=== PATIENT | male | born 1990 | race Caucasian/White ===

== ENCOUNTER 2019-07-25 17:24 | Emergency (ER) | payer SELFPAY ==
--- NOTE | 2019-07-25 19:36 | EDPHYS ---
Physician Documentation [facility] Name: Jermaine Ansari Age: 28 yrs Sex: Male : 1990 Arrival Date: 07/25/2019 Time: 17:25 Bed 12 Private MD: ED Physician Cal Mccormick HPI: 07/25 19:34 This 28 yrs old Male presents to ER via Ambulatory with complaints of Insect pm1 Bite. 19:34 The patient presents with an abscess of the right lower quadrant. Description: raised, pm1 scabbed over. Drainage present yesterday. Onset: The symptoms/episode began/occurred 3 day(s) ago. Possible cause(s): unknown. Associated signs and symptoms: Pertinent negatives: fever. Modifying factors: the symptoms are alleviated by squeezing the lesion and expressing the contents, the symptoms are aggravated by nothing. Severity of symptoms: in the emergency department the symptoms have improved. The patient has not experienced similar symptoms in the past. Historical: - Allergies: 18:01 No Known Allergies; la1 - PMHx: 18:01 ABNORMAL INTESTINE HAD TO BE REMOVED; Hernia; la1 - Immunization history:: Adult Immunizations up to date. - Social history:: Smoking status: Patient uses tobacco products, smokes one pack cigarettes per day. - Ebola Screening: : No symptoms or risks identified at this time. ROS: 19:34 Constitutional: Negative for fever, chills, and weight loss, Cardiovascular: Negative pm1 for chest pain, palpitations, and edema, Respiratory: Negative for shortness of breath, cough, wheezing, and pleuritic chest pain, Abdomen/GI: Negative for abdominal pain, nausea, vomiting, diarrhea, and constipation, Back: Negative for injury and pain, MS/Extremity: Negative for injury and deformity. 19:34 Skin: Positive for abscess, of the right lower quadrant, Negative for cellulitis. 19:34 All other systems are negative. Exam: 19:34 Constitutional: This is a well developed, well nourished patient who is awake, alert, pm1 and in no acute distress. Chest/axilla: Normal chest wall appearance and motion. Nontender with no deformity. No lesions are appreciated. Cardiovascular: Regular rate and rhythm with a normal S1 and S2. No gallops, murmurs, or rubs. Normal PMI, no JVD. No pulse deficits. Respiratory: Lungs have equal breath sounds bilaterally, clear to auscultation and percussion. No rales, rhonchi or wheezes noted. No increased work of breathing, no retractions or nasal flaring. Abdomen/GI: Soft, non-tender, with normal bowel sounds. No distension or tympany. No guarding or rebound. No evidence of tenderness throughout. Back: No spinal tenderness. No costovertebral tenderness. Full range of motion. 19:34 MS/ Extremity: Pulses equal, no cyanosis. Neurovascular intact. Full, normal range of motion. 19:34 Skin: Appearance: normal except for affected area, abscess, that is small, approximately 1 cm(s), of the right lower quadrant, No surrounding cellulitis. No fluctuance or draingage. 19:34 Neuro: Orientation: is normal, Motor: moves all fours, Gait: is steady, at a normal pace, without difficulty. Vital Signs: 18:01 BP 134 / 100; Pulse 89; Resp 16; Temp 98.1; Pulse Ox 100% on R/A; Weight 90.72 kg; la1 Height 5 ft. 11 in. (180.34 cm); 18:01 Body Mass Index 27.89 (90.72 kg, 180.34 cm) la1 MDM: 19:29 Patient medically screened. pm1 19:34 Data reviewed: vital signs. Data interpreted: Pulse oximetry: on room air is 100 %. pm1 Interpretation: normal. Counseling: I had a detailed discussion with the patient and/or guardian regarding: the historical points, exam findings, and any diagnostic results supporting the discharge/admit diagnosis, the need for outpatient follow up, to return to the emergency department if symptoms worsen or persist or if there are any questions or concerns that arise at home. 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 Exp: rv 02/03/2021. Lot #: [id number]. } Route: IM; Site: right deltoid; 19:42 Follow up: Response: Medication administered at discharge. rv Disposition: 07/26 03:38 Co-signature as Attending Physician, Cal Mccormick MD I agree with the assessment and 4 plan of care. Disposition: 07/25/19 19:35 Discharged to Home. Impression: Cutaneous abscess of abdominal wall. - Condition is Stable. - Discharge Instructions: Skin Abscess. - Prescriptions for Bactroban 2 % Topical Ointment - Apply to affected area 1 application by TOPICAL route every 12 hours; 30 gram. Bactrim DS 800- 160 mg Oral Tablet - take 1 tablet by ORAL route every 12 hours for 10 days; 20 tablet. - Medication Reconciliation Form, Thank You Letter, Antibiotic Education, Prescription Opioid Use form. - Follow up: Emergency Department; When: As needed; Reason: Worsening of condition. Follow up: Private Physician; When: 2 - 3 days; Reason: Recheck today's complaints, Continuance of care, Re-evaluation by your physician. - Problem is new. - Symptoms have improved. Signatures: Gokul Potter, RN RN la1 Francisco Hdz, [employer] BEEF TAGGER pm1 Cal Mccormick MD MD tw4 Bennie Egan RN RN rv Corrections: (The following items were deleted from the chart) 07/25 19:42 19:35 07/25/2019 19:35 Discharged to Home. Impression: Cutaneous abscess of abdominal rv wall. Condition is Stable. Forms are Medication Reconciliation Form, Thank You Letter, Antibiotic Education, Prescription Opioid Use. Follow up: Emergency Department; When: As needed; Reason: Worsening of condition. Follow up: Private Physician; When: 2 - 3 days; Reason: Recheck today's complaints, Continuance of care, Re-evaluation by your physician. Problem is new. Symptoms have improved. pm1
--- NOTE | 2019-07-25 19:36 | ER ---
Nurse's Notes [facility] Name: Jermaine Ansari Age: 28 yrs Sex: Male : 1990 Arrival Date: 07/25/2019 Time: 17:25 Bed 12 Private MD: Diagnosis: Cutaneous abscess of abdominal wall Presentation: 07/25 18:00 Presenting complaint: Patient states: I have had a bite or something on my belly since la1 about Thursday and its just hurting and not getting better. Transition of care: patient was not received from another setting of care. Onset of symptoms was July 25, 2019. Risk Assessment: Do you want to hurt yourself or someone else? Patient reports no desire to harm self or others. Initial Sepsis Screen: Does the patient meet any 2 criteria? No. Patient's initial sepsis screen is negative. Does the patient have a suspected source of infection? No. Patient's initial sepsis screen is negative. Care prior to arrival: None. 18:00 Method Of Arrival: Ambulatory la1 18:00 Acuity: CHARANJIT 5 la1 Triage Assessment: 19:41 Bite description: bite sustained to abdomen by an unknown animal, animal information: rv vaccination(s) is not applicable. General: Appears in no apparent distress. comfortable. Historical: - Allergies: 18:01 No Known Allergies; la1 - PMHx: 18:01 ABNORMAL INTESTINE HAD TO BE REMOVED; Hernia; la1 - Immunization history:: Adult Immunizations up to date. - Social history:: Smoking status: Patient uses tobacco products, smokes one pack cigarettes per day. - Ebola Screening: : No symptoms or risks identified at this time. Screenin:15 Abuse screen: Denies threats or abuse. Nutritional screening: No deficits noted. Tuberculosis screening: No symptoms or risk factors identified. Fall Risk None identified. Assessment: 19:15 General: Appears comfortable, obese, Behavior is calm, cooperative, appropriate for age. Pain: Complains of pain in right lower quadrant Quality of pain is described as aching, Pain began 1 week ago Is continuous, Aggravated by palpitation. Neuro: Level of Consciousness is awake, alert, obeys commands, Oriented to person, place, time, situation, Appropriate for age. Cardiovascular: No deficits noted. Respiratory: No deficits noted. GI: No deficits noted. : No deficits noted. EENT: No deficits noted. Derm: Skin is intact, Skin is dry, Skin is pink, Skin temperature is warm Wound noted right lower quadrant Wound is 1/2 cm scab with minimal redness around it. Musculoskeletal: Circulation, motion, and sensation intact. Capillary refill < 3 seconds, Range of motion: intact in all extremities. 19:25 Reassessment: No changes from previously documented assessment. Patient and/or family fc updated on plan of care and expected duration. Pain level reassessed. Patient is alert, oriented x 3, equal unlabored respirations, skin warm/dry/pink. Francisco MACHINE TOOL TECHNOLOGY INSTRUCTOR in to see and examine pt. Vital Signs: 18:01 BP 134 / 100; Pulse 89; Resp 16; Temp 98.1; Pulse Ox 100% on R/A; Weight 90.72 kg; la1 Height 5 ft. 11 in. (180.34 cm); 18:01 Body Mass Index 27.89 (90.72 kg, 180.34 cm) la1 ED Course: 17:25 Patient arrived in ED. as 18:00 Triage completed. la1 18:01 Arm band placed on right wrist. la1 19:15 Patient has correct armband on for positive identification. Call light in reach. fc 19:15 No provider procedures requiring assistance completed. Patient did not have IV access fc during this emergency room visit. 19:20 Francisco Hdz NP is PHCP. pm1 19:21 Cal Mccormick MD is Attending Physician. pm1 19:30 Bennie Egan RN is Primary Nurse. 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 Exp: rv 02/03/2021. Lot #: [id number]. } Route: IM; Site: right deltoid; 19:42 Follow up: Response: Medication administered at discharge. rv Outcome: 19:35 Discharge ordered by . pm1 19:42 Discharged to home ambulatory, with family. rv 19:42 Condition: good 19:42 Discharge instructions given to patient, family, Instructed on discharge instructions, follow up and referral plans. medication usage, Demonstrated understanding of instructions, follow-up care, medications, Prescriptions given X 2. 19:42 Patient left the ED. rv Signatures: Rossy Genao RN RN fc Julia Bird Lee RN RN la1 Francisco Hdz, MACHINE TOOL TECHNOLOGY INSTRUCTOR MACHINE TOOL TECHNOLOGY INSTRUCTOR pm1 Bennie Egan, RN RN rv
[2019-07-25] MEDS ORDERED: TETANUS & DIPHTHERIA TOX,ADULT 0.5 ML VIAL ONE (19:38)
[2019-07-25 20:52] VITALS: BP 134/100; TEMP 98.1; O2SAT 100
== END 2019-07-25 19:42 | disposition home or self-care (01) ==
LOC: ER 17:24
DX: L02.211 Cutaneous abscess of abdominal wall (principal); F17.210 Nicotine dependence, cigarettes, uncomplicated; Z23 Encounter for immunization
CPT/HCPCS: 90471; 90714; 99283